=== PATIENT | female | born 1985 | race Caucasian/White ===

== ENCOUNTER → 2019-06-21 | Outpatient (REF) | payer OTHER ==
[~2019-06-21] MED LIST: HYDR50TA70 PO; PRAZ2CAP PO; SERT50TA29 PO; SUBO8MIS SL; TRAZ-252 PO
[2019-06-21 20:18] LABS: HCG, SERUM QUALITATIVE POSITIVE (NEGATIVE)
== END ==
LOC: M LAB REF 11:15
PROVIDERS: ATTEND Family Medicine
DX: N92.5 Other specified irregular menstruation (principal)

== ENCOUNTER → 2019-06-27 | Outpatient (REF) | payer OTHER, MEDICAID | LOC: M LAB REF 15:54 | PROVIDERS: ATTEND Family Medicine | DX: Z33.1 Pregnant state, incidental (principal) ==

== ENCOUNTER 2019-06-28 14:43 | Emergency (ER) | payer MEDICAID, OTHER ==
[~2019-06-28] VITALS: Ht 162.6 cm; Wt 103.2 kg
[2019-06-28] MEDS ORDERED: SERT50TA29 PO (15:03)
[2019-06-28] MEDS ORDERED: HYDR50TA70 PO (15:03)
[2019-06-28] MEDS ORDERED: SUBO8MIS SL (15:03)
[2019-06-28] MEDS ORDERED: PRAZ2CAP PO (15:03)
[2019-06-28] MEDS ORDERED: TRAZ-252 PO (15:03)
--- NOTE | 2019-06-28 16:58 | REP ---
Clinical: Bleeding with pelvic pain and cramping for dating and viability. Technique: Transabdominal and transvaginal first trimester obstetrical ultrasound with color Doppler evaluation. Findings: Heterogeneous anteverted uterus measures 8.6 x 4.6 x 5.3 cm. Endometrial complex measures 4.3 mm thickness without evidence for decidual reaction and no intrauterine identified. Bilateral ovaries are normal in appearance and vascularity without torsion. Left ovary measures 4.2 x 2.4 x 3.3 cm (RI 0.51) and includes 1.7 cm complex cyst. Right ovary measures 1.8 x 2.9 x 2.0 cm. Bladder is normal and measures 5.2 x 5.0 x 5.0 cm Impression: 1. Normal uterus without decidual reaction or intrauterine identified. Correlation with serial HCG levels recommended. Differential diagnosis would include spontaneous , and less likely ectopic cannot be excluded. Electronically Signed by Camilo Rosario MD 06/28/2019 04:50 P
[2019-06-28 18:11] LABS: BASO # 0.1 10^3/uL (0.0-0.2); BASO % 1.4 % (0.0-1.0); EOS # 0.2 10^3/uL (0.0-0.5); EOS % 3.3 % (0.0-3.0); HEMATOCRIT 34.7 % (36.0-47.0); HEMOGLOBIN 11.4 g/dl (12.0-15.5); LYMPH # 2.9 10^3/uL (1.5-5.0); LYMPH % 50.3 % (24.0-44.0); MEAN CORPUSCULAR HEMOGLOBIN 28.9 pg (27.0-33.0); MEAN CORPUSCULAR HGB CONC 32.9 g/dl (32.0-36.5); MEAN CORPUSCULAR VOLUME 87.8 fl (80.0-96.0); MONO # 0.4 10^3/uL (0.0-0.8); MONO % 6.9 % (0.0-5.0); NEUTROPHILS # 2.2 10^3/uL (1.5-8.5); NEUTROPHILS % 37.7 % (36.0-66.0); PLATELET COUNT, AUTOMATED 251 10^3/uL (150-450); RED BLOOD COUNT 3.95 10^6/uL (4.00-5.40); WHITE BLOOD COUNT 5.7 10^3/uL (4.0-10.0)
[2019-06-28 18:39] LABS: BLOOD UREA NITROGEN 13 MG/DL (7-18); CALCIUM LEVEL 8.6 MG/DL (8.5-10.1); CARBON DIOXIDE LEVEL 24 MEQ/L (21-32); CHLORIDE LEVEL 110 MEQ/L (98-107); CREATININE FOR GFR 0.68 MG/DL (0.55-1.30); GLOMERULAR FILTRATION RATE > 60.0 (>60); GLUCOSE, FASTING 93 MG/DL (70-100); HCG, SERUM QUANTITATIVE 181 MIU/ML; POTASSIUM SERUM 4.1 MEQ/L (3.5-5.1); SODIUM LEVEL 141 MEQ/L (136-145)
[2019-06-28 21:08] VITALS: BP 129/77
== END 2019-06-28 21:09 | disposition home or self-care (01) ==
LOC: M ED 14:43
DX: O20.0 Threatened abortion (principal); O34.81 Maternal care for other abnormalities of pelvic organs, first trimester; N83.202 Unspecified ovarian cyst, left side; Z91.012 Allergy to eggs; Z79.899 Other long term (current) drug therapy; Z79.891 Long term (current) use of opiate analgesic; O99.331 Smoking (tobacco) complicating pregnancy, first trimester; F17.210 Nicotine dependence, cigarettes, uncomplicated; Z3A.00 Weeks of gestation of pregnancy not specified

== ENCOUNTER → 2019-06-30 | Outpatient (CLI) | payer OTHER | LOC: M LAB 16:15 | PROVIDERS: ATTEND Physician Assistant | DX: Z32.00 Encounter for pregnancy test, result unknown (principal) ==

== ENCOUNTER → 2019-07-04 | Outpatient (CLI) | payer OTHER | LOC: M LAB 10:44 | PROVIDERS: ATTEND Specialist | DX: N92.6 Irregular menstruation, unspecified (principal) ==

== ENCOUNTER → 2019-07-09 | Outpatient (CLI) | payer OTHER | LOC: M PLALAB 13:18 | PROVIDERS: ATTEND Specialist | DX: N92.6 Irregular menstruation, unspecified (principal) ==

== ENCOUNTER → 2019-07-16 | Outpatient (CLI) | payer OTHER | LOC: M PLALAB 15:51 | PROVIDERS: ATTEND Specialist | DX: N92.6 Irregular menstruation, unspecified (principal) ==

== ENCOUNTER 2019-08-24 18:00 | Emergency (ER) | payer OTHER ==
[~2019-08-24] VITALS: Ht 162.6 cm; Wt 103.8 kg
[2019-08-24] MEDS ORDERED: NS 1,000 ML IV ONE (18:45)
[2019-08-24 19:05] LABS: BASO # 0.1 10^3/uL (0.0-0.2); BASO % 0.9 % (0.0-1.0); EOS # 0.2 10^3/uL (0.0-0.5); EOS % 2.2 % (0.0-3.0); HEMATOCRIT 35.6 % (36.0-47.0); HEMOGLOBIN 12.3 g/dl (12.0-15.5); LYMPH # 2.3 10^3/uL (1.5-5.0); LYMPH % 33.6 % (24.0-44.0); MEAN CORPUSCULAR HEMOGLOBIN 29.9 pg (27.0-33.0); MEAN CORPUSCULAR HGB CONC 34.6 g/dl (32.0-36.5); MEAN CORPUSCULAR VOLUME 86.6 fl (80.0-96.0); MONO # 0.3 10^3/uL (0.0-0.8); MONO % 4.9 % (0.0-5.0); NEUTROPHILS # 3.9 10^3/uL (1.5-8.5); NEUTROPHILS % 58.1 % (36.0-66.0); PLATELET COUNT, AUTOMATED 274 10^3/uL (150-450); RED BLOOD COUNT 4.11 10^6/uL (4.00-5.40); WHITE BLOOD COUNT 6.8 10^3/uL (4.0-10.0)
--- NOTE | 2019-08-24 20:14 | REPVR ---
PROCEDURE INFORMATION: Exam: US First Trimester, Transabdominal and US , Transvaginal Exam date and time: 08/24/2019 7:40 PM Age: 33 years old Clinical indication: complicated by abdominal or pelvic pain; Lower; First trimester; Gestational age or lmp: Unknown; ; Additional info: Recent + preg test, bleeding, left adenexal pain TECHNIQUE: Imaging protocol: Real-time transabdominal obstetrical ultrasound of the maternal pelvis and a first trimester , less than 14 weeks 0 days, with image documentation. Transvaginal imaging was used for better evaluation of the fetus and adnexa. COMPARISON: No relevant prior studies available. FINDINGS: GESTATION: Gestation: No gestational sac, yolk sac or pole is identified. MATERNAL: Uterus: The uterus measures 8.8 cm x 4.4 cm x 6.5 cm. The endometrial stripe measures 10.1 mm. Cervix: Unremarkable. Right adnexa: The right ovary measures 3.0 cm x 1.8 cm x 2.9 cm. There are multiple follicles within the right ovary with a dominant follicle measuring 16 mm. Left adnexa: The left ovary measures 2.3 cm x 1.8 cm x 2.0 cm. The left ovary has a normal appearance. Intraperitoneal: No free intraperitoneal fluid or adnexal mass is identified. IMPRESSION: No intrauterine gestation identified. An early intrauterine or extra-uterine cannot be excluded. Continued clinical evaluation is needed. Electronically signed by: Waylon Rao On 08/24/2019 20:14:30 PM
[2019-08-24 20:48] VITALS: BP 124/74
[2019-08-24 20:54] LABS: APPEARANCE, URINE HAZY (CLEAR); BACTERIA, URINE AUTO NEGATIVE (NEGATIVE); BILIRUBIN, URINE AUTO NEGATIVE (NEGATIVE); BLOOD, URINE BLOOD 3+ (NEGATIVE); COLOR, URINE YELLOW (YELLOW); GLUCOSE, URINE (UA) AUTO NEGATIVE (NEGATIVE); KETONE, URINE AUTO NEGATIVE (NEGATIVE); LEUKOCYTE ESTERASE, URINE AUTO NEGATIVE (NEGATIVE); MUCUS, URINE SMALL (NEGATIVE); NITRITE, URINE AUTO NEGATIVE (NEGATIVE); PROTEIN, URINE AUTO NEGATIVE (NEGATIVE); RBC, URINE AUTO 139 /HPF (0-3); SQUAMOUS EPITHELIAL CELL UR AU 2 /HPF (0-6); UROBILINOGEN, URINE AUTO 0.2 mg/dL (0.0-2.0); WBC, URINE AUTO 6 /HPF (0-3)
== END 2019-08-24 21:01 | disposition home or self-care (01) ==
LOC: M ED 18:00
DX: Z32.01 Encounter for pregnancy test, result positive (principal); N93.9 Abnormal uterine and vaginal bleeding, unspecified; Z79.899 Other long term (current) drug therapy; Z91.012 Allergy to eggs; Z91.030 Bee allergy status; Z91.040 Latex allergy status; Z91.048 Other nonmedicinal substance allergy status; F17.210 Nicotine dependence, cigarettes, uncomplicated

== ENCOUNTER → 2019-08-26 | Outpatient (CLI) | payer OTHER ==
[~2019-08-26] MED LIST changes: +BUPR8SUB SL; +COLA100C5 PO; +GABA-843 PO; +GABA-845 PO; +IBUP-1022 PO; +PREN200C PO; +ZOFR4TAB16 PO
== END ==
LOC: M LAB 15:45
PROVIDERS: ATTEND Physician Assistant Medical
DX: N93.9 Abnormal uterine and vaginal bleeding, unspecified (principal)

== ENCOUNTER 2019-08-28 20:36 | Emergency (ER) | payer OTHER ==
[~2019-08-28] VITALS: Ht 162.6 cm; Wt 90.9 kg
[~2019-08-28 20:36] MED LIST changes: -BUPR8SUB SL; -COLA100C5 PO; -GABA-843 PO; -GABA-845 PO; -IBUP-1022 PO; -PREN200C PO; -ZOFR4TAB16 PO
[2019-08-28] MEDS ORDERED: BUPR8SUB SL (21:42)
[2019-08-28] MEDS ORDERED: PREN200C PO (21:43)
[2019-08-28] MEDS ORDERED: COLA100C5 PO (21:44)
[2019-08-28] MEDS ORDERED: GABA-843 PO (21:45)
[2019-08-28] MEDS ORDERED: GABA-845 PO (21:45)
[2019-08-28] MEDS ORDERED: IBUP-1022 PO (21:47)
[2019-08-28] MEDS ORDERED: ZOFR4TAB16 PO (21:48)
[2019-08-28] MEDS ORDERED: ONDANSETRON 4MG/2ML VIAL (J2405) IV ONE (22:45)
[2019-08-28] MEDS ORDERED: ACETAMINOPHEN TAB 650MG DOSE (2X325MG) PO ONE (22:45)
[2019-08-28] MEDS ORDERED: NS 1,000 ML IV ONE (22:45)
[2019-08-29] MEDS ORDERED: ONDANSETRON 4 MG ORAL DISINTEGRATING TAB (Q0162 PER 1MG) PO ONE
[2019-08-29 00:39] LABS: BASO # 0.1 10^3/uL (0.0-0.2); BASO % 0.7 % (0.0-1.0); EOS % 0.2 % (0.0-3.0); HEMATOCRIT 32.5 % (36.0-47.0); HEMOGLOBIN 11.3 g/dl (12.0-15.5); LYMPH # 2.4 10^3/uL (1.5-5.0); LYMPH % 27.5 % (24.0-44.0); MEAN CORPUSCULAR HEMOGLOBIN 30.1 pg (27.0-33.0); MEAN CORPUSCULAR HGB CONC 34.8 g/dl (32.0-36.5); MEAN CORPUSCULAR VOLUME 86.4 fl (80.0-96.0); MONO # 0.4 10^3/uL (0.0-0.8); MONO % 4.8 % (0.0-5.0); NEUTROPHILS # 5.7 10^3/uL (1.5-8.5); NEUTROPHILS % 66.4 % (36.0-66.0); PLATELET COUNT, AUTOMATED 254 10^3/uL (150-450); RED BLOOD COUNT 3.76 10^6/uL (4.00-5.40); WHITE BLOOD COUNT 8.5 10^3/uL (4.0-10.0)
[2019-08-29 01:35] VITALS: BP 142/72
--- NOTE | 2019-08-29 02:10 | REPVR ---
PROCEDURE INFORMATION: Exam: US First Trimester, Transabdominal Exam date and time: 08/29/2019 1:19 AM Age: 33 years old Clinical indication: Lmp or gestational age (in weeks): Unk; Other: Heavy bleeding after spont ab; ; Patient HX: Spont ab 08/24/2019 today heavy bleeding, quant has decreased from 317 to 97; Additional info: Vaginal bleeding TECHNIQUE: Imaging protocol: Real-time transabdominal obstetrical ultrasound of the maternal pelvis and a first trimester , less than 14 weeks 0 days, with image documentation. COMPARISON: US OB 08/24/2019 7:23 PM FINDINGS: GESTATION: Gestation: No intrauterine gestation is visualized. The endometrial cavity appears closed. The endometrial stripe measures 13 mm in thickness. Heart rate: N/a Placenta: N/a Amniotic fluid: N/a BIOMETRY: Estimated gestational age: N/a MATERNAL: Uterus: Unremarkable. Cervix: Unremarkable. Right adnexa: The right ovary contains a 3 cm complex cyst that may represent a degenerating corpus luteum or functional cyst. Left adnexa: Unremarkable. Intraperitoneal: No intraperitoneal free fluid. IMPRESSION: 1. The endometrial stripe is closed but somewhat heterogeneous status post recent spontaneous . 2. There is a somewhat complex cyst in the right ovary that may represent a degenerating corpus luteum or functional cyst. 3. Otherwise no acute process. Electronically signed by: Zenon Taylor On 08/29/2019 02:09:48 AM
== END 2019-08-29 02:43 | disposition home or self-care (01) ==
LOC: M ED 20:36
DX: N93.9 Abnormal uterine and vaginal bleeding, unspecified (principal); O03.9 Complete or unspecified spontaneous abortion without complication; N83.201 Unspecified ovarian cyst, right side; B19.20 Unspecified viral hepatitis C without hepatic coma; F99 Mental disorder, not otherwise specified; F17.200 Nicotine dependence, unspecified, uncomplicated; Z91.012 Allergy to eggs; Z91.030 Bee allergy status; Z91.040 Latex allergy status; Z91.048 Other nonmedicinal substance allergy status; Z79.899 Other long term (current) drug therapy

== ENCOUNTER → 2019-09-02 | Outpatient (REF) | payer OTHER ==
[~2019-09-02] MED LIST changes: +BUPR8SUB SL; +COLA100C5 PO; +GABA-843 PO; +GABA-845 PO; +IBUP-1022 PO; +PREN200C PO; +ZOFR4TAB16 PO
== END ==
LOC: M LAB REF 15:28
PROVIDERS: ATTEND Physician Assistant
DX: O03.9 Complete or unspecified spontaneous abortion without complication (principal)

== ENCOUNTER 2019-10-18 05:07 | Emergency (ER) | payer OTHER ==
[~2019-10-18] VITALS: Ht 162.6 cm; Wt 86.4 kg
[2019-10-18 06:30] LABS: BASO # 0.1 10^3/uL (0.0-0.2); BASO % 0.7 % (0.0-1.0); EOS # 0.1 10^3/uL (0.0-0.5); EOS % 1.1 % (0.0-3.0); HEMATOCRIT 40.4 % (36.0-47.0); HEMOGLOBIN 14.1 g/dl (12.0-15.5); LYMPH # 2.8 10^3/uL (1.5-5.0); LYMPH % 30.1 % (24.0-44.0); MEAN CORPUSCULAR HEMOGLOBIN 29.3 pg (27.0-33.0); MEAN CORPUSCULAR HGB CONC 34.9 g/dl (32.0-36.5); MEAN CORPUSCULAR VOLUME 83.8 fl (80.0-96.0); MONO # 0.6 10^3/uL (0.0-0.8); MONO % 6.6 % (0.0-5.0); NEUTROPHILS # 5.6 10^3/uL (1.5-8.5); NEUTROPHILS % 61.2 % (36.0-66.0); PLATELET COUNT, AUTOMATED 280 10^3/uL (150-450); RED BLOOD COUNT 4.82 10^6/uL (4.00-5.40); WHITE BLOOD COUNT 9.2 10^3/uL (4.0-10.0)
[2019-10-18 06:45] LABS: BLOOD UREA NITROGEN 15 MG/DL (7-18); CALCIUM LEVEL 9.2 MG/DL (8.5-10.1); CARBON DIOXIDE LEVEL 19 MEQ/L (21-32); CHLORIDE LEVEL 107 MEQ/L (98-107); CREATININE FOR GFR 1.02 MG/DL (0.55-1.30); GLOMERULAR FILTRATION RATE > 60.0 (>60); GLUCOSE, FASTING 91 MG/DL (70-100); POTASSIUM SERUM 4.1 MEQ/L (3.5-5.1); SODIUM LEVEL 137 MEQ/L (136-145)
[2019-10-18] MEDS ORDERED: KETOROLAC 30 MG/ML 1ML VIAL (J1885 PER 15MG) IM ONE (07:00)
[2019-10-18] MEDS ORDERED: GLYCERIN ADULT SUPP PR ONE (07:00)
--- NOTE | 2019-10-18 07:22 | REP ---
Clinical: Constipation. Technique: Two supine views of the abdomen and pelvis. Findings: Bowel gas pattern suggests underlying constipation without obstruction or perforation. No organomegaly. No abnormal calcifications. Skeletal structures are intact. Impression: Findings consistent with constipation. Electronically Signed by Camilo Rosario MD 10/18/2019 07:13 A
[2019-10-18] MEDS ORDERED: MAGNESIUM CITRATE 300 ML BTL PO ONE (07:30)
[2019-10-18 07:39] VITALS: BP 142/90
[2019-10-18] MEDS ORDERED: NICO14DI24 (07:39)
[2019-10-18] MEDS ORDERED: SERT-138 (07:39)
[2019-10-18] MEDS ORDERED: MIRA3350 PO (08:04)
[2019-10-18] MEDS ORDERED: CVS1SUP2 PR (08:06)
== END 2019-10-18 08:05 | disposition home or self-care (01) ==
LOC: M ED 05:07
DX: K59.00 Constipation, unspecified (principal); R10.84 Generalized abdominal pain; B19.20 Unspecified viral hepatitis C without hepatic coma; F41.9 Anxiety disorder, unspecified; F32.9 Major depressive disorder, single episode, unspecified; F43.10 Post-traumatic stress disorder, unspecified; F17.200 Nicotine dependence, unspecified, uncomplicated; F15.10 Other stimulant abuse, uncomplicated; F12.10 Cannabis abuse, uncomplicated; Z82.49 Family history of ischemic heart disease and other diseases of the circulatory system; Z91.048 Other nonmedicinal substance allergy status; Z91.012 Allergy to eggs; Z91.030 Bee allergy status; Z79.899 Other long term (current) drug therapy
CPT/HCPCS: 36415; 74018; 80048; 84702; 85025; 96372; 99284; J1885

== ENCOUNTER → 2024-10-24 | Outpatient (CLI) | payer OTHER ==
[~2024-10-24] MED LIST changes: +GABA-1172 PO; +GABA-284 PO; -GABA-843 PO; -GABA-845 PO; +GLYCPESU PR; +MIRA3350 PO; +NICO14DI24; +SERT-138
[2024-10-24 12:29] LABS: BASO # 0.1 10^3/uL (0.0-0.2); BASO % 0.9 % (0.0-1.0); EOS # 0.1 10^3/uL (0.0-0.5); EOS % 0.9 % (0.0-3.0); HEMOGLOBIN 11.4 g/dl (12.0-15.5); LYMPH # 1.8 10^3/uL (1.5-5.0); LYMPH % 23.9 % (24.0-44.0); MEAN CORPUSCULAR HEMOGLOBIN 29.8 pg (27.0-33.0); MEAN CORPUSCULAR HGB CONC 34.5 g/dl (32.0-36.5); MEAN CORPUSCULAR VOLUME 86.4 fl (80.0-96.0); MONO # 0.5 10^3/uL (0.0-0.8); MONO % 6.1 % (2.0-8.0); NEUTROPHILS % 67.9 % (36.0-66.0); PLATELET COUNT, AUTOMATED 250 10^3/uL (150-450); RED BLOOD COUNT 3.82 10^6/uL (4.00-5.40); WHITE BLOOD COUNT 7.4 10^3/uL (4.0-10.0)
[2024-10-24 12:36] LABS: BACTERIA, URINE AUTO NEGATIVE (NEGATIVE); RBC, URINE AUTO 8 /HPF (0-3); SQUAMOUS EPITHELIAL CELL UR AU 1 /HPF (0-6); WBC, URINE AUTO 2 /HPF (0-3)
[2024-10-24 13:01] LABS: ALBUMIN 3.9 G/DL (3.2-5.2); ALKALINE PHOSPHATASE 70 U/L (35-104); ALT/SGPT 16 U/L (7.0-40); AST/SGOT 23 U/L (<34); BILIRUBIN,TOTAL 0.3 MG/DL (0.3-1.2); BLOOD UREA NITROGEN 17 MG/DL (9-23); CALCIUM LEVEL 8.9 MG/DL (8.5-10.1); CARBON DIOXIDE LEVEL 30 MMOL/L (20-31); CHLORIDE LEVEL 103 MMOL/L (98-107); CREATININE FOR GFR 0.69 MG/DL (0.55-1.30); GLOMERULAR FILTRATION RATE > 90.0 (>60); GLUCOSE, FASTING 97 MG/DL (60-100); SODIUM LEVEL 141 MMOL/L (136-145); TOTAL PROTEIN 7.3 G/DL (5.7-8.2)
[2024-10-24 13:15] LABS: HEPATITIS B SURFACE ANTIGEN NEGATIVE (NEGATIVE)
[2024-10-24 13:36] LABS: HEPATITIS B CORE ANTIBODY IGM NEGATIVE (NEGATIVE)
[2024-10-24 13:46] LABS: HEPATITIS C VIRUS ABY INDEX > 11.00 INDEX (<0.8)
[2024-10-26 04:13] LABS: HCV RNA QUANTITATION <15 NOT DETECTED IU/mL (NOT DETECTED); HCV RNA log10 <1.18 NOT DETECTED Log IU/mL (NOT DETECTED)
== END ==
LOC: M LAB 11:47
DX: Z00.8 Encounter for other general examination (principal)